=== PATIENT | female | born 1975 | race Caucasian/White ===

== ENCOUNTER → 2021-03-21 | Outpatient (CLI) | payer OTHER ==
--- NOTE | 2021-03-21 08:45 | US ---
EXAMINATION TYPE: US abdomen complete DATE OF EXAM: 03/21/2021 COMPARISON: NONE CLINICAL HISTORY: 46-year-old female R10.11 Right Upper quadrant pain. Hx cholecystectomy, appendecto my. TECHNIQUE: Multiple sonographic images of the abdomen are obtained. FINDINGS: EXAM MEASUREMENTS: Liver Length: 16.7 cm CBD: 0.72 cm Spleen: 10.7 cm Right Kidney: 10.5 5.0 x 4.6 cm Left Kidney: 11.3 x 4.8 x 5.5 cm Food Service Team Member notes: Limited due to overlying bowel gas. Pancreas: Only portions of the pancreatic body are seen. The pancreatic head and tail are secured by bowel gas shadowing. Liver: Echogenic and attenuating. There is a focal hypoechoic area with vascularity see within the a nterior left lobe of the liver: 2.6 x 2.3 x 1.5 cm. Gallbladder: Cholecystectomy. Evidence for sonographic Holliday's sign: No CBD: Mildly dilated Spleen: Appears wnl. Kidneys: No hydronephrosis. Upper IVC: Appears wnl Abd Aorta: Appears wnl IMPRESSION: 1. At least moderate hepatic steatosis. 2. Focal 2.6 cm lesion along the anterior left liver lobe is indeterminate. Liver MRI can further britney racterize. 3. Bile duct mildly dilated at 7.2 mm. Likely normal given postcholecystectomy status. Correlate with alkaline phosphatase and bilirubin levels.
--- NOTE | 2021-03-25 09:43 | MM ---
Reason for exam: screening (asymptomatic). Last mammogram was performed 1 year and 4 months ago. History: Patient is postmenopausal. Physical Findings: A clinical breast exam by your physician is recommended on an annual basis and results should be correlated with mammographic findings. MG Screening Mammo w CAD Bilateral CC and MLO view(s) were taken. Prior study comparison: November 07, 2019, mammogram, performed at [place]. There are scattered fibroglandular densities. No significant changes when compared with prior studies. ASSESSMENT: Negative, BI-RAD 1 RECOMMENDATION: Routine screening mammogram of both breasts in 1 year.
== END | disposition home or self-care (01) ==
LOC: RADUSWWP 07:34
PROVIDERS: ATTEND Family Medicine
DX: K76.0 Fatty (change of) liver, not elsewhere classified (principal); K83.8 Other specified diseases of biliary tract; Z90.49 Acquired absence of other specified parts of digestive tract
CPT/HCPCS: 76700; 77067

== ENCOUNTER → 2021-05-06 | Outpatient (CLI) | payer OTHER | END | disposition home or self-care (01) | LOC: RADMRIMAIN 05:59 | PROVIDERS: ATTEND Family Medicine ==

== ENCOUNTER 2021-06-30 10:39 | Emergency (ER) | payer OTHER ==
[2021-06-30 11:10] VITALS: TEMP 99.5
--- NOTE | 2021-06-30 11:56 | ED ---
URI HPI - General Chief Complaint: Upper Respiratory Infection Stated Complaint: Sore throat/headache Time Seen by Provider: 06/30/21 11:09 Source: patient, RN notes reviewed Mode of arrival: ambulatory Limitations: no limitations - History of Present Illness Initial Comments: 46 year old female presents emergency Department with chief complaint of sore throat headache bodyaches cough congestion. Patient states that she has been sick for last week. She states her started with similar symptoms she is concerned that she may have COVID-19 as he is being deployed for [employer]. Patient denies any shortness breath no chest pain no nausea vomiting diarrhea constipation no other associated complaints. - Related Data Home Medications Medication Instructions Recorded Confirmed Calcium/Magnesium/Zinc 1 tab PO DAILY 06/30/21 06/30/21 [Qakrewg-Wpkjnvlry-Hyhc Tablet] Cholecalciferol [Vitamin D3 (25 100 mcg PO DAILY 06/30/21 06/30/21 Mcg = 1000 Iu)] Fish Oil/Dha/Epa [Fish Oil 1,200 2 cap PO DAILY 06/30/21 06/30/21 mg Fish Oil] Thyroid,Pork [Housing Assistant Property Manager Thyroid] 90 mg PO DAILY 06/30/21 06/30/21 glipiZIDE [Glucotrol] 10 mg PO BID 06/30/21 06/30/21 metFORMIN HCL ER [Glucophage XR] 500 mg PO DAILY 06/30/21 06/30/21 sitaGLIPtin PHOSPHATE [Januvia] 100 mg PO DAILY 06/30/21 06/30/21 Previous Rx's Medication Instructions Recorded Cefuroxime Axetil [Ceftin] 500 mg PO BID #20 tab 06/30/21 Allergies Allergy/AdvReac Type Severity Reaction Status Date / Time amoxicillin Allergy Rash/Hives Verified 06/30/21 11:40 erythromycin base Allergy Rash/Hives Verified 06/30/21 11:40 Penicillins Allergy Rash/Hives Verified 06/30/21 11:40 Review of Systems ROS Statement: Those systems with pertinent positive or pertinent negative responses have been documented in the HPI. ROS Other: All systems not noted in ROS Statement are negative. Past Medical History Past Medical History: Diabetes Mellitus History of Any Multi-Drug Resistant Organisms: None Reported Past Surgical History: Appendectomy, Cholecystectomy, Hysterectomy Past Psychological History: No Psychological Hx Reported Smoking Status: Former smoker Past Alcohol Use History: Occasional Past Drug Use History: None Reported General Exam Limitations: no limitations General appearance: alert, in no apparent distress Head exam: Present: atraumatic, normocephalic, normal inspection Eye exam: Present: normal appearance, PERRL, EOMI. Absent: scleral icterus, conjunctival injection, periorbital swelling ENT exam: Present: mucous membranes moist. Absent: normal exam, normal oropharynx (Mild erythema process drainage) Neck exam: Present: normal inspection, full ROM. Absent: tenderness, meningismus, lymphadenopathy Respiratory exam: Present: normal lung sounds bilaterally. Absent: respiratory distress, wheezes, rales, rhonchi, stridor Cardiovascular Exam: Present: regular rate, normal rhythm, normal heart sounds. Absent: systolic murmur, diastolic murmur, rubs, gallop, clicks Course Vital Signs 06/30/21 11:06 Temperature 99.5 F Pulse Rate 86 Respiratory 18 Rate Blood Pressure 144/89 O2 Sat by Pulse 97 Oximetry Medical Decision Making - Medical Decision Making 46-year-old cough going symptoms negative and father negative: 19 x-ray unremarkable. Patient discharged in stable condition return parameters were discussed. - Lab Data Lab Results 06/30/21 06/30/21 Range/Units 11:11 12:10 Coronavirus (PCR) Not Detected (Not Detectd) Influenza Type A RNA Not Detected (Not Detectd) Influenza Type B (PCR) Not Detected (Not Detectd) Disposition Clinical Impression: Upper respiratory infection Disposition: HOME SELF-CARE Condition: Stable Instructions (If sedation given, give patient instructions): Upper Respiratory Infection (ED) Additional Instructions: Please return to the Emergency Department if symptoms worsen or any other concerns. Prescriptions: Cefuroxime Axetil [Ceftin] 500 mg PO BID #20 tab Is patient prescribed a controlled substance at d/c from ED?: No Referrals: Rowena Ribeiro MD [Primary Care Provider] - 1-2 days Time of Disposition: 13:19
--- NOTE | 2021-06-30 13:02 | XR ---
EXAMINATION TYPE: XR chest 2V DATE OF EXAM: 06/30/2021 12:26 PM COMPARISON:None CLINICAL INDICATION:Female, 46 years old with history of cough; TECHNIQUE: Frontal and lateral views of the chest. FINDINGS: Lungs/Pleura: There is no evidence of pleural effusion, focal consolidation, or pneumothorax. Pulmonary vascularity: Unremarkable. Heart/mediastinum: Cardiomediastinal silhouette is unremarkable. Musculoskeletal: No acute osseous pathology. IMPRESSION: No acute cardiopulmonary disease/process.
[2021-06-30 13:29] VITALS: BP 121/71; PULSE 80; RESP 16
== END 2021-06-30 13:47 | disposition home or self-care (01) ==
LOC: EC 10:39
DX: J06.9 Acute upper respiratory infection, unspecified (principal); E11.9 Type 2 diabetes mellitus without complications; Z87.891 Personal history of nicotine dependence; Z72.89 Other problems related to lifestyle; Z79.84 Long term (current) use of oral hypoglycemic drugs
CPT/HCPCS: 71046; 87502; 87635

== ENCOUNTER 2021-12-17 15:11 | Emergency (ER) | payer OTHER ==
[2021-12-17 15:41] VITALS: BP 128/79; PULSE 77; RESP 20; TEMP 98
[2021-12-17 16:12] LABS: Basophils # (A) 0.1 k/uL (0-0.2); Basophils % (A) 1 %; Eosinophils # (A) 0.4 k/uL (0-0.7); Eosinophils % (A) 5 %; HCT 41.7 % (34.0-46.0); HGB 13.6 gm/dL (11.4-16.0); Lymphocytes # (A) 2.8 k/uL (1.0-4.8); Lymphocytes % (A) 35 %; MCH 29.1 pg (25.0-35.0); MCHC 32.6 g/dL (31.0-37.0); MCV 89.4 fL (80.0-100.0); Mean Platelet Volume 7.4; Monocytes # (A) 0.3 k/uL (0-1.0); Monocytes % (A) 4 %; Neutrophils # (A) 4.4 k/uL (1.3-7.7); Neutrophils % (A) 54 %; Platelet Count 332 k/uL (150-450); RBC 4.66 m/uL (3.80-5.40); RDW 13.3 % (11.5-15.5); WBC 8.1 k/uL (3.8-10.6)
[2021-12-17 16:23] LABS: ALT 28 U/L (4-34); AST 28 U/L (14-36); African American GFR (CKD) >90 (>60 ml/min/1.73 sqM); Albumin 4.1 g/dL (3.5-5.0); Alkaline Phosphatase 110 U/L (38-126); Amylase 61 U/L (30-110); Anion Gap 6 mmol/L; Blood Urea Nitrogen 16 mg/dL (7-17); Calcium 8.9 mg/dL (8.4-10.2); Carbon Dioxide 27 mmol/L (22-30); Chloride 108 mmol/L (98-107); Glucose 150 mg/dL (74-99); Lipase 123 U/L (23-300); Non-African American GFR(CKD) >90 (>60 ml/min/1.73 sqM); Potassium 4.4 mmol/L (3.5-5.1); Sodium 141 mmol/L (137-145); Total Bilirubin 0.4 mg/dL (0.2-1.3)
--- NOTE | 2021-12-17 16:27 | XR ---
EXAMINATION TYPE: XR KUB DATE OF EXAM: 12/17/2021 COMPARISON: NONE INDICATION: Abdominal pain TECHNIQUE: Single view of the abdomen and pelvis FINDINGS: Cholecystectomy clips. No free air under the diaphragm. No multiple air-fluid levels or signs of acut e high-grade small bowel obstruction. Moderate fecal loading of the right hemicolon. Degenerative changes of the lower thoracic, lower lumb ar spine and hip joints. Right pelvic phleboliths. IMPRESSION: As above.
== END 2021-12-17 16:58 | disposition left against medical advice (07) ==
LOC: EC 15:11 → SUPCPDRO 15:11 → EC 16:58
DX: Z53.21 Procedure and treatment not carried out due to patient leaving prior to being seen by health care provider (principal); R10.9 Unspecified abdominal pain
CPT/HCPCS: 36415; 74018; 80053; 82150; 83690; 85025

== ENCOUNTER → 2022-07-09 | Outpatient (CLI) | payer BC, OTHER ==
--- NOTE | 2022-07-10 16:39 | MM ---
Reason for Exam: Screening (asymptomatic). Last mammogram was performed 1 year(s) and 3 month(s) ago. Patient History: Menarche at age 12. First Full-Term at age 20. Hysterectomy at age 30. Postmenopausal. Patient has history of breast feeding. Patient used Hormonal Contraceptives for 2 years. Risk Values: Tere 5 year model risk: 0.8%. NCI Lifetime model risk: 8.4%. Prior Study Comparison: 11/07/2019 Screening Mammogram, [place]. 03/21/2021 Bilateral Screening Mammogram, [facility]. Tissue Density: There are scattered fibroglandular densities. Findings: Analyzed By CAD. Pattern appears symmetrical and stable. No significant interval change is evident No suspicious groups of microcalcifications, spiculated or lobular masses, architectural distortion or other secondary signs of malignancy are mammographically apparent. Overall Assessment: Benign, BI-RAD 2 Management: Screening Mammogram of both breasts in 1 year. A negative mammogram report should not preclude additional follow up of suspicious palpable abnormalities. Patient should continue monthly self breast exam. A clinical breast exam by your physician is recommended on an annual basis and results should be correlated with mammographic findings. Electronically signed and approved by: Wm Locke D.O. Radiologis
== END | disposition home or self-care (01) ==
LOC: RADMAMWWP 15:55
PROVIDERS: ATTEND Family Medicine
DX: Z12.31 Encounter for screening mammogram for malignant neoplasm of breast (principal); Z78.0 Asymptomatic menopausal state
CPT/HCPCS: 77063; 77067

== ENCOUNTER 2022-08-07 17:06 | Emergency (ER) | payer BC, OTHER ==
[2022-08-07 17:10] VITALS: RESP 16; TEMP 98
--- NOTE | 2022-08-07 17:55 | ED ---
General Adult HPI - General Chief complaint: Arrhythmia/Palpitations Stated complaint: Chest Pain,Palpitations Time Seen by Provider: 08/07/22 17:23 Source: patient Mode of arrival: ambulatory Limitations: no limitations - History of Present Illness Initial comments: Dictation was produced using [employer] dictation software. please excuse any grammatical, word or spelling errors. Chief Complaint: 47-year-old female with no significant past medical history presents emergency department for palpitations. History of Present Illness: This 47-year-old female presents emergency department for several days of palpitations. Patient was recently started on steroids for shoulder pain. States that her palpitations started then. States that she feels that her heart skips a beat followed by a heavy thud. Patient has a chest pain. No shortness of breath. The ROS documented in this emergency department record has been reviewed and c onfirmed by me. Those systems with pertinent positive or negative responses have been documented in the HPI. All other systems are other negative and/or noncontributory. PHYSICAL EXAM: General Impression: Alert and oriented x3, not in acute distress HEENT: Normocephalic atraumatic, extra-ocular movements intact, pupils equal and reactive to light bilaterally, mucous membranes moist. Cardiovascular: Heart regular rate and rhythm Chest: Able to complete full sentences, no retractions, no tachypnea Abdomen: abdomen soft, non-tender, non-distended, no organomegaly Musculoskeletal: Pulses present and equal in all extremities, no peripheral edema Motor: no focal deficits noted Neurological: CN II-XII grossly intact, no focal motor or sensory deficits noted Skin: Intact with no visualized rashes Psych: Normal affect and mood ED course: 47-year-old female presents to the emergency part for several days of upper dictations. Vital signs upon arrival are within acceptable limits. EKG is unremarkable. equipment monitor phototypesetting patient is having multiple PVCs. Nursing notes and chart review was performed EKG interpreted by me: Ventricular rate 91, sinus rhythm,. Interval 134, QRS 92, QTC 397. No NE prolongation, no QTC prolongation, no ST or T-wave changes noted. Overall, this EKG is unremarkable Laboratory evaluation obtained. CV metabolic panel is unremarkable. Patient monitored in the emergency department for approximately 2 hours and 30 minutes. Reticulocyte monitor reviewed. Patient has multiple premature ventricular contractions. No arrhythmias noted. Patient discharged with referral to cardiology. Was pt. sent in by a medical professional or institution (GRZEGORZ Smith, SENIOR TRAINING SPECIALIST, urgent care, hospital, or long term...) When possible be specific @ -No Did you speak to anyone other than the patient for history (EMS, parent, family, police, friend...)? What history was obtained from this source @ -No Did you review nursing and triage notes (agree or disagree)? Why? @ -I reviewed and agree with nursing and triage notes Were old charts reviewed (outside hosp., previous admission, EMS record, old EKG, old radiological studies, urgent care reports/EKG's, long term records)? Report findings @ -No old charts were reviewed Differential Diagnosis (chest pain, altered mental status, abdominal pain women, abdominal pain men, vaginal bleeding, weakness, fever, dyspnea, syncope, headac he, dizziness, GI bleed, back pain, seizure, CVA, palpatations, mental health)? @ -not applicable EKG interpreted by me (3pts min.). @ -As above X-rays interpreted by me (1pt min.). @ -Unremarkable CT interpreted by me (1pt min.). @ -None done U/S interpreted by me (1pt. min.). @ -None done What testing was considered but not performed or refused? (CT, X-rays, U/S, labs)? Why? @ -See above What meds were considered but not given or refused? Why? @ -Antiarrhythmics were considered but not indicated due to patient not having any life-threatening dysrhythmia Did you discuss the management of the patient with other professionals (professionals i.e. GRZEGORZ Smith, SENIOR TRAINING SPECIALIST, lab, RT, psych nurse, child welfare social worker, director of employer services, teacher, lead security officer, showcase trimmer)? Give summary @ -no Was smoking cessation discussed for >3mins.? @ -No Was critical care preformed (if so, how long)? @ -No Were there social determinants of health that impacted care today? How? (Homelessness, low income, unemployed, alcoholism, drug addiction, transp ortation, low edu. Level, literacy, decrease access to med. care, fdc, rehab)? @ -No Was there de-escalation of care discussed even if they declined (Discuss DNR or withdrawal of care, Hospice)? DNR status @ -No What co-morbidities impacted this encounter? (DM, HTN, Smoking, COPD, CAD, Cancer, CVA, ARF, Chemo, Hep., AIDS, mental health diagnosis, sleep apnea, morbid obesity)? @ -None Was patient admitted / discharged? Hospital course, mention meds given and route, prescriptions, significant lab abnormalities, going to OR and other pertinent info. @ -See above Undiagnosed new problem with uncertain prognosis? @ -No Drug Therapy requiring intensive monitoring for toxicity (Heparin, Nitro, Insulin, Cardizem)? @ -No Were any procedures done? @ -No Diagnosis/symptom? @ -Palpitations Acute, or Chronic, or Acute on Chronic? @ -Acute Uncomplicated (without systemic symptoms) or Complicated (systemic symptoms)? @ -unComplicated Side effects of treatment? @ -No Exacerbation, Progression, or Severe Exacerbation? @ -No Poses a threat to life or bodily function? How? (Chest pain, [place], [place], pneumonia, PE, COPD, DKA, ARF, appy, cholecystitis, CVA, Diverticulitis, Homicidal, Suicidal, threat to staff... and all critical care pts) @ -No - Related Data Home Medications Medication Instructions Recorded Confirmed Calcium/Magnesium/Zinc 1 tab PO DAILY 06/30/21 11/25/21 [Xyptmbh-Tcnqpurat-Onhl Tablet] Cholecalciferol [Vitamin D3 (25 5,000 units PO DAILY 06/30/21 11/25/21 Mcg = 1000 Iu)] Fish Oil/Dha/Epa [Fish Oil 1,200 2,400 mg PO DAILY 06/30/21 11/25/21 mg Fish Oil] Thyroid,Pork [Investor Relations Manager Thyroid] 90 mg PO QAM 06/30/21 11/25/21 glipiZIDE [Glucotrol] 10 mg PO BID 06/30/21 11/25/21 metFORMIN HCL ER [Glucophage XR] 500 mg PO DAILY 06/30/21 11/25/21 sitaGLIPtin PHOSPHATE [Januvia] 100 mg PO DAILY 06/30/21 11/25/21 Allergies Allergy/AdvReac Type Severity Reaction Status Date / Time amoxicillin Allergy Rash/Hives Verified 08/07/22 17:10 erythromycin base Allergy Rash/Hives Verified 08/07/22 17:10 Penicillins Allergy Rash/Hives Verified 08/07/22 17:10 Review of Systems ROS Statement: Those systems with pertinent positive or pertinent negative responses have been documented in the HPI. ROS Other: All systems not noted in ROS Statement are negative. Past Medical History Past Medical History: Diabetes Mellitus, Hyperlipidemia, Thyroid Disorder History of Any Multi-Drug Resistant Organisms: None Reported Past Surgical History: Adenoidectomy, Appendectomy, Bladder Surgery, Cholecystectomy, Hysterectomy, Tonsillectomy Additional Past Surgical History / Comment(s): bladder suspension 11/25/2021 Past Anesthesia/Blood Transfusion Reactions: No Reported Reaction Past Psychological History: No Psychological Hx Reported Smoking Status: Never smoker Past Alcohol Use History: Occasional Past Drug Use History: None Reported - Past Family History Father Family Medical History: Cancer Additional Family Medical History / Comment(s): Brain cancer. General Exam Limitations: no limitations Course Vital Signs 08/07/22 17:06 Temperature 98 F Pulse Rate 98 Respiratory 16 Rate Blood Pressure 165/91 O2 Sat by Pulse 96 Oximetry Medical Decision Making - Lab Data Result diagrams: 08/07/22 17:58 08/07/22 17:58 Lab Results 08/07/22 08/07/22 08/07/22 Range/Units 17:58 17:58 17:58 WBC 7.4 (3.8-10.6) k/uL RBC 4.71 (3.80-5.40) m/uL Hgb 13.9 (11.4-16.0) gm/dL Hct 40.9 (34.0-46.0) % MCV 86.8 (80.0-100.0) fL MCH 29.5 (25.0-35.0) pg MCHC 34.0 (31.0-37.0) g/dL RDW 13.8 (11.5-15.5) % Plt Count 294 (150-450) k/uL MPV 7.3 Neutrophils % 50 % Lymphocytes % 35 % Monocytes % 4 % Eosinophils % 7 % Basophils % 0 % Neutrophils # 3.8 (1.3-7.7) k/uL Lymphocytes # 2.6 (1.0-4.8) k/uL Monocytes # 0.3 (0-1.0) k/uL Eosinophils # 0.6 (0-0.7) k/uL Basophils # 0.0 (0-0.2) k/uL PT 9.4 (9.0-12.0) sec INR 0.9 (<1.2) APTT 22.8 (22.0-30.0) sec Sodium 139 (137-145) mmol/L Potassium 4.2 (3.5-5.1) mmol/L Chloride 105 (98-107) mmol/L Carbon Dioxide 27 (22-30) mmol/L Anion Gap 7 mmol/L BUN 13 (7-17) mg/dL Creatinine 0.87 (0.52-1.04) mg/dL Est GFR (CKD-EPI)AfAm >90 (>60 ml/min/1.73 sqM) Est GFR (CKD-EPI)NonAf 80 (>60 ml/min/1.73 sqM) Glucose 235 H (74-99) mg/dL Calcium 9.0 (8.4-10.2) mg/dL Magnesium 1.8 (1.6-2.3) mg/dL Total Bilirubin 0.3 (0.2-1.3) mg/dL AST 24 (14-36) U/L ALT 27 (4-34) U/L Alkaline Phosphatase 107 (38-126) U/L Troponin I (0.000-0.034) ng/mL Total Protein 6.7 (6.3-8.2) g/dL Albumin 3.9 (3.5-5.0) g/dL 08/07/22 Range/Units 17:58 WBC (3.8-10.6) k/uL RBC (3.80-5.40) m/uL Hgb (11.4-16.0) gm/dL Hct (34.0-46.0) % MCV (80.0-100.0) fL MCH (25.0-35.0) pg MCHC (31.0-37.0) g/dL RDW (11.5-15.5) % Plt Count (150-450) k/uL MPV Neutrophils % % Lymphocytes % % Monocytes % % Eosinophils % % Basophils % % Neutrophils # (1.3-7.7) k/uL Lymphocytes # (1.0-4.8) k/uL Monocytes # (0-1.0) k/uL Eosinophils # (0-0.7) k/uL Basophils # (0-0.2) k/uL PT (9.0-12.0) sec INR (<1.2) APTT (22.0-30.0) sec Sodium (137-145) mmol/L Potassium (3.5-5.1) mmol/L Chloride (98-107) mmol/L Carbon Dioxide (22-30) mmol/L Anion Gap mmol/L BUN (7-17) mg/dL Creatinine (0.52-1.04) mg/dL Est GFR (CKD-EPI)AfAm (>60 ml/min/1.73 sqM) Est GFR (CKD-EPI)NonAf (>60 ml/min/1.73 sqM) Glucose (74-99) mg/dL Calcium (8.4-10.2) mg/dL Magnesium (1.6-2.3) mg/dL Total Bilirubin (0.2-1.3) mg/dL AST (14-36) U/L ALT (4-34) U/L Alkaline Phosphatase (38-126) U/L Troponin I <0.012 (0.000-0.034) ng/mL Total Protein (6.3-8.2) g/dL Albumin (3.5-5.0) g/dL Disposition Clinical Impression: Palpitations Disposition: HOME SELF-CARE Condition: Good Instructions (If sedation given, give patient instructions): Heart Palpitations (ED) Is patient prescribed a controlled substance at d/c from ED?: No Referrals: Rowena Ribeiro MD [Primary Care Provider] - 1-2 days Hank Goode DO [STAFF PHYSICIAN] - 1-2 days Time of Disposition: 19:40
[2022-08-07 18:12] LABS: Basophils % (A) 0 %; Eosinophils # (A) 0.6 k/uL (0-0.7); Eosinophils % (A) 7 %; HCT 40.9 % (34.0-46.0); HGB 13.9 gm/dL (11.4-16.0); Lymphocytes # (A) 2.6 k/uL (1.0-4.8); Lymphocytes % (A) 35 %; MCH 29.5 pg (25.0-35.0); MCV 86.8 fL (80.0-100.0); Mean Platelet Volume 7.3; Monocytes # (A) 0.3 k/uL (0-1.0); Monocytes % (A) 4 %; Neutrophils # (A) 3.8 k/uL (1.3-7.7); Neutrophils % (A) 50 %; Platelet Count 294 k/uL (150-450); RBC 4.71 m/uL (3.80-5.40); RDW 13.8 % (11.5-15.5); WBC 7.4 k/uL (3.8-10.6)
--- NOTE | 2022-08-07 18:19 | XR ---
EXAMINATION TYPE: XR chest 2V DATE OF EXAM: 08/07/2022 COMPARISON: Chest x-ray June 30, 2021 HISTORY: Dysrhythmia. TECHNIQUE: Frontal and lateral views of the chest are obtained. FINDINGS: There is no suspicious focal air space opacity, pleural effusion, or pneumothorax seen. T he cardiac silhouette size is stable and within normal limits. Increased curvature of thoracolumbar s pine incidentally noted. Overlying EKG leads. IMPRESSION: No acute process.
[2022-08-07 18:26] LABS: INR 0.9 (<1.2); Partial Thromboplastin Time 22.8 sec (22.0-30.0); Prothrombin Time 9.4 sec (9.0-12.0)
[2022-08-07 18:29] LABS: ALT 27 U/L (4-34); AST 24 U/L (14-36); African American GFR (CKD) >90 (>60 ml/min/1.73 sqM); Albumin 3.9 g/dL (3.5-5.0); Alkaline Phosphatase 107 U/L (38-126); Anion Gap 7 mmol/L; Blood Urea Nitrogen 13 mg/dL (7-17); Carbon Dioxide 27 mmol/L (22-30); Chloride 105 mmol/L (98-107); Glucose 235 mg/dL (74-99); Magnesium 1.8 mg/dL (1.6-2.3); Non-African American GFR(CKD) 80 (>60 ml/min/1.73 sqM); Potassium 4.2 mmol/L (3.5-5.1); Sodium 139 mmol/L (137-145); Total Bilirubin 0.3 mg/dL (0.2-1.3); Total Protein 6.7 g/dL (6.3-8.2)
[2022-08-07] MEDS ORDERED: ACET/COD 300 MG/30 MG STARTER PACK 6 TAB BTL PO STA (19:42)
[2022-08-07 20:10] VITALS: BP 130/85; PULSE 80
== END 2022-08-07 19:57 | disposition home or self-care (01) ==
LOC: EC 17:06
DX: R00.2 Palpitations (principal); E11.9 Type 2 diabetes mellitus without complications; E07.9 Disorder of thyroid, unspecified; Z88.0 Allergy status to penicillin; Z88.1 Allergy status to other antibiotic agents; Z90.710 Acquired absence of both cervix and uterus; Z90.89 Acquired absence of other organs; Z90.49 Acquired absence of other specified parts of digestive tract; Z79.84 Long term (current) use of oral hypoglycemic drugs; Z79.890 Hormone replacement therapy
CPT/HCPCS: 36415; 71046; 80053; 83735; 84484; 85025; 85610; 85730; 93005; 99285